=== PATIENT | male | born 1995 | race Caucasian/White ===

== ENCOUNTER 2017-07-24 10:09 | Emergency (ER) | payer SELFPAY ==
[2017-07-24] MEDS ORDERED: Lidocaine 1% PF 5 ML VIAL ONE (11:02)
--- NOTE | 2017-07-24 11:10 | RAD ---
RADIOGRAPH RIGHT HAND FOUR VIEWS: History: 21-year-old male status post-traumatic injury including laceration, to the right thumb. FINDINGS: There is a transversely obliquely oriented linear lucency across the first distal tuft, probably repr esenting a nondisplaced fracture. No other potential fracture is identified. There is no dislocation or radiopaque foreign body. The rest of the bones appear normal. IMPRESSION: Evidence for acute, traumatic, closed, non-displaced, linear fracture of the first distal tuft. POS: WILL
[2017-07-24] MEDS ORDERED: HYDROcodone/Acetaminophen 5/325 mg Tablet ONE (12:33)
[2017-07-24] MEDS ORDERED: CEFAZOLIN 1 GM VIAL IM SCH (12:45)
[2017-07-24] MEDS ORDERED: Bacitracin Zinc 1 Packet ONE (12:54)
[2017-07-24] MEDS ORDERED: Water For Injection,Sterile 20 ML ONE (12:57)
== END 2017-07-24 13:17 | disposition home or self-care (01) ==
LOC: ERS 10:09
DX: S67.01XA Crushing injury of right thumb, initial encounter (principal); S62.524A Nondisplaced fracture of distal phalanx of right thumb, initial encounter for closed fracture; W23.0XXA Caught, crushed, jammed, or pinched between moving objects, initial encounter; Y92.69 Other specified industrial and construction area as the place of occurrence of the external cause
CPT/HCPCS: 11740; 96372; J0690; J2001